=== PATIENT | female | born 1980 | race Caucasian/White ===

== ENCOUNTER 2020-11-27 23:52 | Emergency (ER) | payer SELFPAY ==
[2020-11-28 00:02] VITALS: BP 117/76; PULSE 85; TEMP 98.7; BMI 26.6
== END 2020-11-28 00:38 | disposition home or self-care (01) ==
LOC: JER 23:52
DX: B37.2 Candidiasis of skin and nail (principal)
CPT/HCPCS: 99283-25

== ENCOUNTER 2021-12-18 16:14 | Emergency (ER) | payer SELFPAY ==
[2021-12-18 16:21] VITALS: BP 104/56; PULSE 84; TEMP 98; BMI 29.1
[2021-12-18] MEDS ORDERED: DEXAMETHASONE SOD PHOSPHATE 10 MG/1 ML VIAL IM ONE (17:15)
[2021-12-18] MEDS ORDERED: diphenhydrAMINE HCL 50 MG CAPSULE PO ONE (17:15)
[2021-12-18] MEDS ORDERED: DEXAMETHASONE SOD PHOSPHATE 10 MG/1 ML VIAL ONE (17:16)
[2021-12-18] MEDS ORDERED: diphenhydrAMINE HCL 25 MG CAPSULE (FP) PO ONE (17:16)
== END 2021-12-18 18:35 | disposition home or self-care (01) ==
LOC: JERFT 16:14
PROC: 3E023NZ Introduction of Analgesics, Hypnotics, Sedatives into Muscle, Percutaneous Approach (ICD-10-PCS; principal; 2021-12-18)
DX: T78.40XA Allergy, unspecified, initial encounter (principal)
CPT/HCPCS: 99283-25; J1100

== ENCOUNTER 2022-03-06 00:07 | Emergency (ER) | payer SELFPAY ==
[2022-03-06 00:35] VITALS: BP 107/74; RESP 77; TEMP 97.9; BMI 29.9
== END 2022-03-06 02:55 | disposition home or self-care (01) ==
LOC: JER 00:07
DX: R21 Rash and other nonspecific skin eruption (principal)
CPT/HCPCS: 99281-25

== ENCOUNTER 2022-11-13 11:45 | Emergency (ER) | payer SELFPAY ==
[2022-11-13 12:13] VITALS: BP 125/73; PULSE 83; RESP 18; TEMP 97.8; BMI 28.3
[2022-11-13] MEDS ORDERED: predniSONE 20 MG TABLET (UD) PO ONE (14:02)
[2022-11-13] MEDS ORDERED: predniSONE 20 MG TABLET (UD) ONE (14:33)
== END 2022-11-13 14:57 | disposition home or self-care (01) ==
LOC: JERFT 11:45
DX: H02.849 Edema of unspecified eye, unspecified eyelid (principal); R22.1 Localized swelling, mass and lump, neck; L50.9 Urticaria, unspecified; T78.40XA Allergy, unspecified, initial encounter
CPT/HCPCS: 99283-25

== ENCOUNTER 2022-11-27 05:40 | Emergency (ER) | payer SELFPAY ==
[2022-11-27 05:48] VITALS: BP 129/58; PULSE 92; RESP 20; TEMP 98.1; BMI 28.3
[2022-11-27] MEDS ORDERED: predniSONE 20 MG TABLET (UD) PO ONE (05:57)
[2022-11-27] MEDS ORDERED: diphenhydrAMINE HCL 25 MG CAPSULE (FP) PO ONE ×2 (05:57→06:02)
[2022-11-27] MEDS ORDERED: FAMOTIDINE 10 MG TABLET PO ONE (05:57)
[2022-11-27] MEDS ORDERED: predniSONE 20 MG TABLET (UD) ONE (06:02)
[2022-11-27] MEDS ORDERED: FAMOTIDINE 20 MG TABLET ONE (06:02)
== END 2022-11-27 06:58 | disposition home or self-care (01) ==
LOC: JER 05:40
DX: R22.0 Localized swelling, mass and lump, head (principal); R21 Rash and other nonspecific skin eruption; T78.40XA Allergy, unspecified, initial encounter
CPT/HCPCS: 99283-25

== ENCOUNTER 2023-01-26 22:40 | Emergency (ER) | payer SELFPAY ==
[2023-01-26 22:52] VITALS: BP 127/79; PULSE 70; RESP 16; TEMP 98.2; BMI 29.9
[2023-01-26] MEDS ORDERED: FLUCONAZOLE 150 MG TABLET PO ONE ×2 (23:50→23:52)
[2023-01-26] MEDS ORDERED: CEPHALEXIN MONOHYDRATE 500 MG CAPSULE (UD) PO ONE (23:52)
[2023-01-26] MEDS ORDERED: CEPHALEXIN MONOHYDRATE 500 MG CAPSULE (UD) ONE (23:53)
== END 2023-01-27 00:21 | disposition home or self-care (01) ==
LOC: JER 22:40
DX: L73.9 Follicular disorder, unspecified (principal); B37.9 Candidiasis, unspecified
CPT/HCPCS: 99283-25

== ENCOUNTER 2023-02-16 18:11 | Emergency (ER) | payer SELFPAY ==
[2023-02-16 18:16] VITALS: BP 120/71; PULSE 88; RESP 18; TEMP 98.2; BMI 29.9
[2023-02-16 20:46] LABS: BASO % 0.8 % (0-2.0); HEMATOCRIT 38.5 % (32.4-45.2); HEMOGLOBIN 13.3 GM/dL (10.7-15.3); LYMPH % 17.5 % (8-40); MCH 32.5 pg (25.7-33.7); MCHC 34.5 g/dl (32.0-36.0); MEAN CELL VOLUME 94.2 fl (80-96); MEAN PLT VOLUME 8.5 fl (7.5-11.1); MONO % 7.8 % (3.8-10.2); NEUT % 68.9 % (42.8-82.8); PLATELET COUNT 286 10^3/uL (134-434); RBC 4.08 M/mm3 (3.60-5.2); RDW 14.5 % (11.6-15.6); WHITE BLOOD COUNT 8.3 K/mm3 (4.0-10.0)
[2023-02-16 21:00] LABS: POTASSIUM 3.8 mmol/L (3.5-5.1)
[2023-02-16 21:01] LABS: URINE APPEARANCE CLEAR; URINE BILIRUBIN NEGATIVE (NEGATIVE); URINE COLOR YELLOW; URINE GLUCOSE (UA) NEGATIVE (NEGATIVE); URINE KETONE NEGATIVE (NEGATIVE); URINE LEUK ESTERASE NEGATIVE (NEGATIVE); URINE NITRITE NEGATIVE (NEGATIVE); URINE PROTEIN NEGATIVE (NEGATIVE); URINE UROBILINOGEN 0.2 mg/dL (0.2-1.0)
[2023-02-16 21:03] LABS: ALBUMIN 3.6 g/dl (3.4-5.0); BLOOD UREA NITROGEN 8.8 mg/dL (7-18)
[2023-02-16 21:06] LABS: CREATININE 0.5 mg/dL (0.55-1.3)
[2023-02-16 21:07] LABS: BILIRUBIN,TOTAL 0.3 mg/dL (0.2-1); TOT PROT 7.3 g/dl (6.4-8.2)
== END 2023-02-16 23:06 | disposition home or self-care (01) ==
LOC: JER 18:11
DX: O26.891 Other specified pregnancy related conditions, first trimester (principal); R10.30 Lower abdominal pain, unspecified; Z3A.10 10 weeks gestation of pregnancy; R10.2 Pelvic and perineal pain
CPT/HCPCS: 36415; 76801-TC; 80053; 81003; 83690; 84702; 85025; 86850; 86900; 86901; 87086; 99284-25

== ENCOUNTER 2023-02-27 15:09 | Emergency (ER) | payer OTHER ==
[2023-02-27 15:21] VITALS: BP 114/60; PULSE 78; RESP 18; TEMP 98.8; BMI 30.9
== END 2023-02-27 19:06 | disposition home or self-care (01) ==
LOC: JERFT 15:09
DX: O26.891 Other specified pregnancy related conditions, first trimester (principal); R09.81 Nasal congestion; R51.9 Headache, unspecified; R42 Dizziness and giddiness; O99.511 Diseases of the respiratory system complicating pregnancy, first trimester; J01.10 Acute frontal sinusitis, unspecified; O98.512 Other viral diseases complicating pregnancy, second trimester; U07.1 COVID-19; Z3A.12 12 weeks gestation of pregnancy
CPT/HCPCS: 0241U-QW; 36415; 84702; 99283-25

== ENCOUNTER 2023-03-14 18:13 | Emergency (ER) | payer OTHER ==
[2023-03-14 18:35] VITALS: TEMP 98.2; BMI 31.1
[2023-03-14] MEDS ORDERED: ACETAMINOPHEN 1000 MG/100 ML BAG IVPB ONE (19:43)
[2023-03-14] MEDS ORDERED: METOCLOPRAMIDE HCL INJECTION 10 MG/2 ML VIAL IVPUSH ONE (19:43)
[2023-03-14] MEDS ORDERED: MAGNESIUM SULF 50% (8.12 MEQ/2 ML-1 GM VIAL) IVPB ONE (19:43)
[2023-03-14] MEDS ORDERED: SODIUM CHLORIDE 0.9% 500 ML INFUS.BAG IV ONE (19:43)
[2023-03-14] MEDS ORDERED: METOCLOPRAMIDE HCL INJECTION 10 MG/2 ML VIAL ONE (19:56)
[2023-03-14] MEDS ORDERED: ACETAMINOPHEN INJECTION 100 ML IVPB ONE (19:56)
[2023-03-14 20:12] LABS: BASO % 0.6 % (0-2.0); EOS % 5.1 % (0-4.5); HEMATOCRIT 38.6 % (32.4-45.2); HEMOGLOBIN 13.1 GM/dL (10.7-15.3); MCH 31.9 pg (25.7-33.7); MCHC 33.8 g/dl (32.0-36.0); MEAN CELL VOLUME 94.3 fl (80-96); MEAN PLT VOLUME 8.9 fl (7.5-11.1); MONO % 7.5 % (3.8-10.2); NEUT % 65.8 % (42.8-82.8); PLATELET COUNT 311 10^3/uL (134-434); RDW 14.6 % (11.6-15.6); WHITE BLOOD COUNT 9.3 K/mm3 (4.0-10.0)
[2023-03-14 20:18] LABS: EPI CELLS 20 /uL (0-25.1); HYALINE CASTS 0 /uL (0-3.1); PH,URINE 6.5 (5.0-8.0); URINE APPEARANCE CLEAR; URINE BACTERIA 95 /uL (0-1359); URINE BILIRUBIN NEGATIVE (NEGATIVE); URINE COLOR YELLOW; URINE GLUCOSE (UA) NEGATIVE (NEGATIVE); URINE KETONE NEGATIVE (NEGATIVE); URINE LEUK ESTERASE TRACE (NEGATIVE); URINE NITRITE NEGATIVE (NEGATIVE); URINE PROTEIN NEGATIVE (NEGATIVE); URINE RBC 25 /uL (0-23.9); URINE UROBILINOGEN 0.2 mg/dL (0.2-1.0); URINE WBC 7 /uL (0-25.8)
[2023-03-14 20:22] LABS: CHLORIDE 106 mmol/L (98-107); SODIUM 133 mmol/L (136-145)
[2023-03-14 20:24] LABS: CALCIUM 8.6 mg/dL (8.5-10.1)
[2023-03-14 20:25] LABS: ALBUMIN 3.5 g/dl (3.4-5.0); BLOOD UREA NITROGEN 12.8 mg/dL (7-18); CO2 23 mmol/L (21-32); GLUCOSE,RANDOM 90 mg/dL (74-106)
[2023-03-14 20:28] LABS: CREATININE 0.6 mg/dL (0.55-1.3); SGOT/AST 73 U/L (15-37)
[2023-03-14 20:29] LABS: BILIRUBIN,TOTAL 0.2 mg/dL (0.2-1); TOT PROT 7.8 g/dl (6.4-8.2)
[2023-03-14 20:31] LABS: ALK PHOS 63 U/L (45-117)
[2023-03-14] MEDS ORDERED: MAGNESIUM 1GM/D5W - 1 GM/100 ML IVPB IVPB ONE (20:47)
[2023-03-14 21:07] LABS: ANION GAP 4 MMOL/L (8-16); POTASSIUM 7.1 mmol/L (3.5-5.1); SGPT/ALT 27 U/L (13-61)
[2023-03-14 22:23] LABS: POTASSIUM 4.1 mmol/L (3.5-5.1)
[2023-03-14 22:25] LABS: BLOOD UREA NITROGEN 10.6 mg/dL (7-18); CALCIUM 8.2 mg/dL (8.5-10.1)
[2023-03-14 22:28] LABS: CREATININE 0.4 mg/dL (0.55-1.3)
[2023-03-14 23:16] VITALS: BP 114/73; PULSE 73; RESP 14
== END 2023-03-14 23:22 | disposition home or self-care (01) ==
LOC: JER 18:13 → JERFT 18:13
PROC: 3E033NZ Introduction of Analgesics, Hypnotics, Sedatives into Peripheral Vein, Percutaneous Approach (ICD-10-PCS; principal; 2023-03-14)
PROC: 3E033GC Introduction of Other Therapeutic Substance into Peripheral Vein, Percutaneous Approach (ICD-10-PCS; 2023-03-14)
PROC: 3E033GC Introduction of Other Therapeutic Substance into Peripheral Vein, Percutaneous Approach (ICD-10-PCS; 2023-03-14)
DX: O99.891 Other specified diseases and conditions complicating pregnancy (principal); R51.9 Headache, unspecified; O26.892 Other specified pregnancy related conditions, second trimester; R42 Dizziness and giddiness; R11.0 Nausea; Z3A.15 15 weeks gestation of pregnancy
CPT/HCPCS: 36415; 76815; 80048; 80053; 81003; 85025; 87086; 99284-25

== ENCOUNTER 2023-09-01 16:25 | Inpatient (IN) | payer OTHER ==
[2023-09-01 17:26] VITALS: BMI 33.6
[2023-09-01] MEDS: DEXTROSE 5%-LACTATED RINGERS 1,000 ML IV SCH (17:50)
[2023-09-01 19:06] LABS: BASO % 0.5 % (0-2.0); EOS % 1.6 % (0-4.5); HEMATOCRIT 33.6 % (32.4-45.2); HEMOGLOBIN 11.5 GM/dL (10.7-15.3); LYMPH % 15.1 % (8-40); MCH 30.6 pg (25.7-33.7); MCHC 34.2 g/dl (32.0-36.0); MEAN CELL VOLUME 89.6 fl (80-96); MEAN PLT VOLUME 9.6 fl (7.5-11.1); MONO % 7.7 % (3.8-10.2); NEUT % 75.1 % (42.8-82.8); PLATELET COUNT 258 10^3/uL (134-434); RBC 3.75 M/mm3 (3.60-5.2); RDW 15.4 % (11.6-15.6); WHITE BLOOD COUNT 9.6 K/mm3 (4.0-10.0)
[2023-09-01] MEDS: MISOPROSTOL 25 MCG TABLET (COMPOUNDED BY PHARMACY) PV SCH (19:10)
[2023-09-01 19:14] LABS: INR 0.9 (0.83-1.09); PROTHROMBIN TIME (PATIENT) 10.4 SEC (9.7-13.0)
[2023-09-01 19:16] LABS: ACTIVATED PTT 25.7 SECONDS (25.2-36.5)
[2023-09-01 19:34] LABS: POTASSIUM 4.1 mmol/L (3.5-5.1)
[2023-09-01 19:37] LABS: CALCIUM 8.8 mg/dL (8.5-10.1)
[2023-09-01 19:38] LABS: BLOOD UREA NITROGEN 10.8 mg/dL (7-18)
[2023-09-01 19:44] LABS: CREATININE 0.5 mg/dL (0.55-1.3)
[2023-09-02] MEDS ORDERED: OXYTOCIN 30 UNITS in 0.9% NS 30 UNIT/500 ML INFUS.BAG IVPB ONE (05:21)
[2023-09-02] MEDS: OXYTOCIN 30 UNITS in 0.9% NS 30 UNIT/500 ML INFUS.BAG IVPB SCH (05:30)
[2023-09-02] MEDS: SODIUM CHLORIDE 500 ML IV STA (08:10)
[2023-09-02] MEDS ORDERED: OXYTOCIN 20 UNITS in 0.9% NS 20 UNIT/1,000 ML INFUS.BAG IV ONE (09:08)
[2023-09-02] MEDS: OXYTOCIN 20 UNITS in 0.9% NS 20 UNIT/1,000 ML INFUS.BAG IV SCH (09:35)
[2023-09-02] MEDS ORDERED: BISACODYL 10 MG SUPP.RECT RC PRN (09:55)
[2023-09-02] MEDS ORDERED: ACETAMINOPHEN 325 MG TABLET (FP) PO PRN (09:55)
[2023-09-02] MEDS ORDERED: BENZOCAINE 28 GM HEMORRHOIDAL OINTMENT TP PRN (09:55)
[2023-09-02 10:05] LABS: CORD BASE EXCESS -2.7 mmol/L (0-2); CORD BASE EXCESS -4.6 mmol/L (0-2); CORD HCO3 20.8 mmHg (20-29); CORD HCO3 23.2 mmHg (20-29); CORD PCO2 39.8 mmHg (30-78); CORD PCO2 43.8 mmHg (30-78); CORD pH 7.336 (7.14-7.44); CORD pH 7.341 (7.14-7.44)
[2023-09-02] MEDS ORDERED: IBUPROFEN 600 MG TABLET (FP) PO ONE (11:27)
[2023-09-02] MEDS: IBUPROFEN 600 MG TABLET (FP) PO PRN (11:28)
[2023-09-02] MEDS: PRENATAL VITAMINS W/ FOLIC ACID TABLET (FP) PO SCH (14:56)
[2023-09-02] MEDS: WITCH HAZEL 50% (TUCKS) 40 PAD/JAR PAD TP PRN (22:12)
[2023-09-02] MEDS: BENZOCAINE 20% 57 GM BOTTLE TP PRN (22:12)
[2023-09-03 07:15] LABS: BASO % 0.7 % (0-2.0); EOS % 2.3 % (0-4.5); HEMATOCRIT 30.7 % (32.4-45.2); HEMOGLOBIN 10.4 GM/dL (10.7-15.3); LYMPH % 17.2 % (8-40); MCH 30.9 pg (25.7-33.7); MCHC 33.9 g/dl (32.0-36.0); MEAN PLT VOLUME 9.4 fl (7.5-11.1); NEUT % 72.8 % (42.8-82.8); PLATELET COUNT 228 10^3/uL (134-434); RBC 3.37 M/mm3 (3.60-5.2); WHITE BLOOD COUNT 10.6 K/mm3 (4.0-10.0)
[2023-09-03] MEDS: DIPHTH,PERTUSS(ACELL),TET 0.5 ML DISP.SYRIN IM ONE (10:02)
[2023-09-03] MEDS: FERROUS SO4 325 MG TABLET (FP) PO SCH (12:20)
[2023-09-03 21:41] VITALS: RESP 18
[2023-09-04 09:52] VITALS: BP 128/84; PULSE 83; TEMP 98.7
== END 2023-09-04 12:07 | disposition home or self-care (01) | DRG 560 ==
LOC: JLDR 16:25 → J3W 09-02 11:54
PROVIDERS: ADMIT Obstetrics & Gynecology Maternal & Fetal Medicine; ATTEND Obstetrics & Gynecology Maternal & Fetal Medicine
PROC: 3E0P7VZ Introduction of Hormone into Female Reproductive, Via Natural or Artificial Opening (ICD-10-PCS; 2023-09-01)
PROC: 10E0XZZ Delivery of Products of Conception, External Approach (ICD-10-PCS; principal; 2023-09-02)
PROC: 10907ZC Drainage of Amniotic Fluid, Therapeutic from Products of Conception, Via Natural or Artificial Opening (ICD-10-PCS; 2023-09-02)
DX: O80 Encounter for full-term uncomplicated delivery (principal); Z3A.39 39 weeks gestation of pregnancy; Z37.0 Single live birth
CPT/HCPCS: 36415; 36600; 80048; 82803; 85025; 85610; 85730; 86780; 86850; 86900; 86901; 88307-TC; 90715